=== PATIENT | female | born 1995 | race Caucasian/White ===

== ENCOUNTER 2021-08-08 07:02 | Day surgery (SDC) | payer BC ==
[2021-08-03 11:48] VITALS: BMI 51.5
[2021-08-08] MEDS ORDERED: Lidocaine 1% MPF 2 ML VIAL ONE (09:16)
[2021-08-08] MEDS ORDERED: Oxymetazoline HCl 0.05% ( 15 ML ) ONE (09:17)
[2021-08-08] MEDS ORDERED: EPINEPHrine 1 MG/ML AMP ONE (10:24)
[2021-08-08] MEDS ORDERED: Mupirocin 2% Ointment 22 GM Tube ONE (10:24)
[2021-08-08] MEDS ORDERED: PROPOFOL 20 ML ONE (10:25)
[2021-08-08] MEDS ORDERED: Fentanyl 250 MCG/5 ML VIAL ONE (10:25)
[2021-08-08] MEDS ORDERED: Lidocaine 1% w/Epinephrine 1:100K 20 ML VIAL ONE (10:25)
[2021-08-08] MEDS ORDERED: Midazolam HCl 2 mg/2 ml Vial ONE (10:26)
[2021-08-08] MEDS ORDERED: Rocuronium Bromide 10 MG/ML (10ML VIAL) ONE (10:26)
[2021-08-08] MEDS ORDERED: Lidocaine 1% PF 5 ML VIAL ONE (10:26)
[2021-08-08] MEDS ORDERED: Dexamethasone 20 MG/5 ML VIAL ONE (10:26)
[2021-08-08] MEDS ORDERED: Ondansetron PF 4 MG/2 ML Vial ONE (10:26)
[2021-08-08] MEDS ORDERED: Glycopyrrolate 0.2 MG/ML 5 ML SYRINGE ONE (10:26)
[2021-08-08] MEDS ORDERED: CEFAZOLIN 1 GM VIAL ONE ×2 (10:35→10:49)
== END 2021-08-08 12:50 | disposition home or self-care (01) ==
LOC: CSHSDC 07:02
PROVIDERS: ATTEND Otolaryngology Otolaryngic Allergy
PROC: 099Q7ZZ Drainage of Right Maxillary Sinus, Via Natural or Artificial Opening (ICD-10-PCS; principal; 2021-08-08)
PROC: 09BK8ZZ Excision of Nasal Mucosa and Soft Tissue, Via Natural or Artificial Opening Endoscopic (ICD-10-PCS; principal; 2021-08-08)
PROC: 099R7ZZ Drainage of Left Maxillary Sinus, Via Natural or Artificial Opening (ICD-10-PCS; principal; 2021-08-08)
DX: J33.0 Polyp of nasal cavity (principal); J32.9 Chronic sinusitis, unspecified
CPT/HCPCS: 88305; C2625; J0171; J0690; J1100; J2250; J2405; J2704; J3010